=== PATIENT | male | born 1970 ===

== ENCOUNTER → 2017-10-21 | Emergency (ER) | payer SELFPAY ==
[~2017-10-21] MED LIST: ADENOSINE 6 MG/2 ML VIAL IVPUSH ONE; MANNITOL 25% 12.5 GM/50 ML VIAL IVPB ONE; NICARDIPINE 25 MG in DEXTROSE 5%-WATER - 240 ML IVPB SCH; levETIRAcetam 500 MG/5 ML INJECTION VIAL IVPB ONE; niCARdipine HCL 25 MG/10 ML AMPUL IVPB ONE
[2017-10-21 15:56] VITALS: BMI 31.9
--- NOTE | 2017-10-21 16:03 | PDOC ---
History of Present Illness - General History Source: EMS Exam Limitations: Clinical Condition <Igor Dimas - Last Filed: 10/21/17 16:36> - General History Source: EMS Exam Limitations: Clinical Condition - History of Present Illness Initial Comments: 10/21/17 16:42 The patient is a 47-year-old male, with unknown past medical history, brought in by EMS for unresponsiveness at work today. 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 The patient reportedly went to his car to rest at 2 PM and his coworkers went to check up on the patient and found him unresponsive in his vehicle. EMS was called and he was intubated the patient in the field. <Seda Tobar - Last Filed: 10/21/17 16:44> - General Chief Complaint: CVA/TIA Stated Complaint: UNRESPONSIVE Time Seen by Provider: 10/21/17 15:51 Past History <Igor Dimas - Last Filed: 10/21/17 16:36> <Seda Tobar - Last Filed: 10/21/17 16:44> - Past Medical History Allergies/Adverse Reactions: Allergies Allergy/AdvReac Type Severity Reaction Status Date / Time No Allergy Information Allergy Verified 10/21/17 15:56 Available Home Medications: Ambulatory Orders Unobtainable [Unobtainable] 10/21/17 Review of Systems - Review of Systems Able to Perform ROS?: No (unresponsive) <Seda Tobar - Last Filed: 10/21/17 16:44> *Physical Exam - Physical Exam Comments: 10/21/17 16:09 NEURO: comatose, does not respond to commands. Does not have <Igor Dimas - Last Filed: 10/21/17 16:36> - Vital Signs Last Vital Signs Temp Pulse Resp BP Pulse Ox 97.9 F 150 H 18 150/108 98 10/21/17 16:30 10/21/17 16:30 10/21/17 16:30 10/21/17 16:30 10/21/17 16:30 - Physical Exam Comments: 10/21/17 16:10 GENERAL: (+) Unresponsive, HEAD: No signs of trauma EYES: (+) pupils non-reactive. sclera anicteric, conjunctiva clear ENT: (+) intubated. Auricles normal inspection NECK: no lymphadenopathy, JVD, or masses LUNGS: (+) intubated, tachypneic. Breath sounds equal, clear to auscultation bilaterally. No wheezes, and no crackles HEART: (+) Tachycardic. Normal rhythm, normal S1 and S2, no murmurs, rubs or gallops ABDOMEN: Soft, normoactive bowel sounds. No masses EXTREMITIES: No edema. No clubbing or cyanosis. No cords, erythema SKIN: Warm, Dry, normal turgor, no rashes or lesions noted. <Seda Tobar - Last Filed: 10/21/17 16:44> NIH Stroke Scale - Last Known Well Date/Time & Onset Date Last Known Well: 10/21/17 - Initial Evaluation Level of consciousness: Coma Ask patient the month and their age: Both incorrect Ask patient to open & close eyes; make fist and let go: Both incorrect Best gaze (horizontal eye movement): Forced deviation Visual field testing: No visual field loss Facial paresis (Show teeth/raise eyebrows/close eyes tight): Complete paralysis of one or both sides (Upper and lower face) Motor Function: Left Arm: No movement Motor Function: Right Arm: No movement Motor Function: Left Leg: No movement Motor Function: Right Leg: No movement Limb Ataxia: No ataxia Sensory(Use pinprick test arms,legs,trunk,face/side to side): Severe to total sensory loss Best language (Describe picture, name items, read sentences): Mute Dysarthria (read several words): Intubated or other physical barrierr, explain: Extinction and Inattention: Profound garfield-inattention or extinction to more than one modality - Total Score NIH Stroke Scale Score: 35 <Igor Dimas - Last Filed: 10/21/17 16:36> tPA Exclusion Checklist 0-3hr - Time Elapsed Date last known well: 10/21/17 - Thrombolytic Therapy Candidate Is the patient eligible for Thrombolytic Therapy?: No - Exclusion Criteria 0-3hr Symptoms suggest subarachnoid hemorrhage: Yes - Relative Exclusion Criteria 0-3h Life expectancy <1yr/severe co-morbid illness/[employer] on admit: No : No - Ineligibility reason(s) Reasons No tPA given: See reason(s) noted above <Igor Dimas - Last Filed: 10/21/17 16:36> Heart Score/ECG Review #1 ECG reviewed & interpreted by me at: 15:45 10/21/17 16:36 NSR 153, STD V4-V6, ROBERTH avR, QTC 555 msec, incomplete RBBB <Igor Dimas - Last Filed: 10/21/17 16:36> Critical Care Time/MDM Note - Medical Decision Making Note: 10/21/17 16:21 A portion of this note was documented by scribe services under my direction. I have reviewed the details of the note, within reason, and agree with the documentation with the following case summary and management plan written by me. Patient treated in the ED. Patient arrives by to the emergency department. Nursing notes are reviewed and incorporated into the medical decision-making. Vital signs reviewed. Peripheral IV access obtained by the nurse, laboratory studies are drawn and sent, reviewed and interpreted by myself. Vital Signs Temp Pulse Resp BP Pulse Ox 154 H 16 129/82 94 L 10/21/17 15:57 10/21/17 15:52 10/21/17 15:52 10/21/17 15:57 47-year-old male with unknown past medical history brought in by EMS for unresponsiveness. 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 Approximately 2 PM, the patient had went to his car. His coworkers have went to check up on the patient noted that the patient was unresponsive and EMS was called. EMS was activated note the patient to be generally unresponsive. Decision was made to intubate the patient. Patient was intubated by EMS. Upon arrival to the ED, the patient was comatose with no purposeful movements. The patient was then brought to the ED where I as well as a team assault patient. Patient was brought immediately to the CAT scan and demonstrated a large left frontal hemorrhage, subarachnoid hemorrhage, bleeding into the ventricles, with a transtentorial shift likely secondary to an aneurysm. Patient has a bed was placed at [address] Breaux was consulted. Chest xray obtained, pending official read, which demonstrates adequate placement in the trachea. Dr. Breaux and recommended transfer. Case discussed with [facility] neurosurgeon Dr. Schneider who accepted the patient to transfer (code red) to the [facility] ER. Requests 0.5 mg/kg mannitol and 1g of keppra and SBP target < 140. Accepting attending is Dr. Centeno and Dr. Kimball. I had attempted to find family information from Kasandra (tank shop supervisor at [employer]), but she did not have the information with her. She will attempt to find family for us. Pt is stat code red transfer for aneurysmal intracranial hemorrhage. <Igor Dimas - Last Filed: 10/21/17 16:36> - Medical Decision Making Note: 10/21/17 16:08 [facility] transfer center was called at 16:07 and Code Brain was initiated. The [facility] neurosurgeon was paged at 16:14 via transfer center. The patient's case discussed with [facility] neurosurgeon, Dr. Greenwood, at 16: 16 Documentation prepared by Seda Tobar, acting as medical communication specialist for Igor Dimas MD, 10/21/17 16:40 <Seda Tobar - Last Filed: 10/21/17 16:44> Discharge Disposition - Discharge Dispostion Admit: No - Transfer to Acute Care Facility Receiving Facility: [facility] Accepting Physician:: Dr. Kimball/Dr. Centeno <Igor Dimas - Last Filed: 10/21/17 16:36> <Seda Tobar - Last Filed: 10/21/17 16:44> - Diagnosis Subarachnoid hemorrhage - Discharge Dispostion Disposition: TRANSFER ACUTE CARE/OTHER HOSP Condition at time of disposition: Guarded
[2017-10-21 16:32] VITALS: TEMP 97.9
[2017-10-21 16:35] LABS: BASO % 0.3 % (0-2.0); HEMATOCRIT 49.4 % (35.4-49); HEMOGLOBIN 16.3 GM/dL (11.7-16.9); LYMPH % 8.4 % (8-40); MCH 29.8 pg (25.7-33.7); MEAN CELL VOLUME 90.3 fl (80-96); MEAN PLT VOLUME 9.1 fl (7.5-11.1); MONO % 4.5 % (3.8-10.2); NEUT % 86.8 % (42.8-82.8); PLATELET COUNT 280 K/MM3 (134-434); RBC 5.47 M/mm3 (4.00-5.60); RDW 13.6 % (11.9-15.9); WHITE BLOOD COUNT 17.8 K/mm3 (4.0-10.0)
[2017-10-21 16:54] LABS: INR 1.01 (0.82-1.09); PROTHROMBIN TIME (PATIENT) 11.4 SEC (9.98-11.88)
[2017-10-21 16:57] LABS: ACTIVATED PTT 26.4 SECONDS (26.9-34.4)
[2017-10-21 17:01] LABS: ALBUMIN 4.1 g/dl (3.4-5.0); ANION GAP 13 (8-16); BILIRUBIN,TOTAL 0.2 mg/dL (0.2-1.0); BLOOD UREA NITROGEN 14 mg/dL (7-18); CALCIUM 8.6 mg/dL (8.5-10.1); CHLORIDE 109 mmol/L (98-107); CO2 20 mmol/L (21-32); CREATININE 1.4 mg/dL (0.7-1.3); POTASSIUM 3.6 mmol/L (3.5-5.1); SGOT/AST 30 U/L (15-37); SGPT/ALT 42 U/L (12-78); SODIUM 142 mmol/L (136-145)
[2017-10-21 17:02] VITALS: BP 140/108; PULSE 150
[2017-10-21 17:09] LABS: ALK PHOS 109 U/L (45-117)
[2017-10-21 17:48] LABS: GLUCOSE,RANDOM 321 mg/dL (74-106)
[2017-10-21 18:19] LABS: MAGNESIUM 1.9 mg/dL (1.8-2.4); PHOSPHOROUS 6.3 mg/dL (2.5-4.9)
[2017-10-21 18:25] LABS: CHOLESTEROL 217 mg/dL (50-200); LDL CHOLESTEROL (ONLY SJRH) 157 mg/dL (5-100)
[2017-10-21 18:26] LABS: HDL CHOLESTEROL 28 mg/dL (40-60); TRIGLYCERIDES 216 mg/dL (35-160)
--- NOTE | 2017-10-23 11:45 | EKG ---
Test Reason : Blood Pressure : / mmHG Vent. Rate : 153 BPM Atrial Rate : 153 BPM P-R Int : 136 ms QRS Dur : 094 ms QT Int : 348 ms P-R-T Axes : 048 -16 070 degrees QTc Int : 555 ms SINUS TACHYCARDIA INCOMPLETE RIGHT BUNDLE BRANCH BLOCK MARKED ST ABNORMALITY, POSSIBLE LATERAL SUBENDOCARDIAL INJURY ABNORMAL ECG NO PREVIOUS ECGS AVAILABLE Confirmed by MARIA GUADALUPE RICHARDS MD ([id number]) on 10/23/2017 11:45:11 AM Referred By: Confirmed By:MARIA GUADALUPE RICHARDS MD
== END | disposition short-term general hospital (02) ==
LOC: JER 15:44
CPT/HCPCS: 36415; 70450-TC; 71045-TC; 80053; 82465; 82550; 82553; 83718; 83721; 83735; 84100; 84443; 84478; 84484; 85025; 85610; 85730; 93005; 93010; 99285-25